=== PATIENT | female | born 1960 | race Two or more races ===

== ENCOUNTER → 2025-01-13 | Outpatient (CLI) | payer MEDICAID, SELFPAY ==
--- NOTE | 2025-01-13 08:30 | XR_ITS ---
Examination: CT abdomen without intravenous contrast. Coronal 2-D reconstructions. Sagittal 2-D reconstructions. Date and time of exam:January 13, 2025 0757 hours Comparison November 18, 2023 INDICATIONS: Diagnosis other and unspecified ventricle hernia with gangrene, right upper abdominal pain 5 years CTDI: vol (mGy): 11 DLP: (mGycm): 352 Technique: Axial images of the abdomen have been obtained, 3 mm slice thickness, without intravenous contrast 2-D sagittal coronal reconstructions Low dose protocols were performed. One or more of the following dose reduction techniques were used; automated exposure control, adjustment of the mA and/or KV according to patient size, use of iterative reconstruction technique. Findings: Diffuse fatty infiltration throughout the liver no focal liver or splenic lesions Cholelithiasis No pancreatic or adrenal mass Mild bilateral renal parenchymal scar formation, no renal or ureteral calculi, no hydronephrosis Normal appendix 9 mm fat-containing umbilical hernia defect No bowel obstruction Prominent osteopenia Moderate disc narrowing L5-S1 IMPRESSION: Mild bilateral renal parenchymal scar formation Normal appendix 9 mm fat-containing umbilical hernia defect
== END | disposition home or self-care (01) ==
PROVIDERS: PCP Physician Assistant; Referring Provider Physician Assistant; Visit Provider Physician Assistant
DX: N28.89 Other specified disorders of kidney and ureter (principal); K42.9 Umbilical hernia without obstruction or gangrene
CPT/HCPCS: 74150